=== PATIENT | female | born 1995 | race Caucasian/White ===

== ENCOUNTER 2016-06-10 00:56 | Inpatient (IN) | payer MEDICAID ==
[2016-06-10] MEDS ORDERED: HYDROCODONE 5 MG/ACETAMIN 325 MG TAB PO ONE (01:04)
--- NOTE | 2016-06-10 01:09 | EDPRACDOC ---
<Serg Rojas - Last Filed: 06/10/16 02:03> - General Information Information Source: Patient Mode Of Arrival: Car - History of Present Illness Onset: TODAY HPI: PT STATES SHE IS 7 MONTHS AND TODAY BEGAN HAVING A HEADACHE THAT SHE CAN NOT GET TO STOP. PT STATES SHE HAS HAD TOOTH PAIN FOR THE PAST MONTH, SHE HAS NOT BEEN EVALUATED FOR SAME Location: Reports: Generalized Pain Quality: Reports: Moderate Modifying Factors: worse with: Medication, Exposure to light, Cold therapy, Immobilization, Movement, Rest Prior work up: Denies: NO, O, CT, LP, MRI, Neurologist Relevant History of: Reports: None <Cherry Hwang - Last Filed: 06/11/16 13:32> - General Information Chief Complaint: Headache Stated Complaint: HEAD & TOOTH ACHE Time Seen by Provider: 06/10/16 01:03 Home Medications: Home Medications Vits W-Ca,Fe,FA(<1Mg) [] 1 each PO DAILY 06/10/16 Allergies/Adverse Reactions: Allergies Allergy/AdvReac Type Severity Reaction Status Date / Time amoxicillin Allergy Hives* Verified 06/10/16 02:17 Penicillins Allergy Hives* Verified 06/10/16 02:17 ED Past Medical History - History Reviewed Yes Nurses notes reviewed and agree except as marked <Cherry Hwang - Last Filed: 06/11/16 13:32> EDM Review of Systems - Review of Systems ROS Negative Except as Marked: Yes All systems reviewed and were negative except as marked <Cherry Hwang - Last Filed: 06/11/16 13:32> - Physical Exam Last recorded Vital Signs: Last Vital Signs Temp 98.1 F 06/10/16 01:08 Pulse 76 06/10/16 01:55 Resp 20 06/10/16 01:55 BP 141/95 06/10/16 01:55 Pulse Ox 100 06/10/16 01:55 Oxygen Pulse Oxygen Saturation 98 O2 Device Oxygen Flow Rate Fraction of Inspired Oxygen ( FIO2) <Serg Rojas - Last Filed: 06/10/16 02:03> - Physical Exam Constitutional: Alert Oriented to: Time, Person, Place Last recorded Vital Signs: Oxygen Pulse Oxygen Saturation O2 Device Oxygen Flow Rate Fraction of Inspired Oxygen ( FIO2) - HEENT Head: Normal ( normocephalic) Eye Exam: Normal (PERRL, EOMI, Sclera white) Oropharynx: Normal (Pharynx:Moist without exudate,Gums-no swelling) Tympanic Membrane: Normal Nose: No Symptoms Reported (septum midline) Neck: Normal (FROM, trachea at midline) - Respiratory/Cardiovascular Respiratory: Normal - CTA (BBS clear to auscultation without adventitious sounds ) Cardiovascular: Normal (RRR without murmur, gallop or rub) - GI Auscultation: Normal (NABS) Palpation: Normal (Soft,No rebound or guarding, non distended) Tenderness: Non tender Hutson's Sign: Negative Rectal Exam: Deferred - Musculoskeletal Back: Normal (Non-Tender) Extremities: Normal (Normal tone, Pulses 2+ No cyanosis or edema, FROM), Pedal Edema (1+ PITTING), Pedal Pulse (2+) - Integumentary Skin: Normal, Warm, Dry Lymphatics: Normal (no adenopathy) - Neurologic Memory Impaired: Normal Motor Function: Normal (Normal tone, Pulses 2+ No cyanosis or edema, FROM) Cranial Nerve: Normal (CN II-X11 intact sensation, strength 5/5) Cerebellar: Normal Mood Description: Normal Perception: Normal <Cherry Hwang - Last Filed: 06/11/16 13:32> - Results 06/10/16 01:10 06/10/16 01:10 WBC 10.2 xk/uL (3.8-10.8) 06/10/16 01:10 RBC 4.22 xM/uL (4.20-5.40) 06/10/16 01:10 Hgb 12.1 g/dL (12.0-16.0) 06/10/16 01:10 Hct 35.8 % (36-47) L 06/10/16 01:10 MCV 85 fL (81-99) 06/10/16 01:10 MCH 28.5 pg (27-32) 06/10/16 01:10 MCHC 33.7 g/dl (33-36) 06/10/16 01:10 RDW 12.7 % (11.5-14.5) 06/10/16 01:10 Plt Count 269 xk/uL (130-400) 06/10/16 01:10 MPV 9.0 fL (7.4-10.4) 06/10/16 01:10 Neut % (Auto) 64.1 % (45-76) 06/10/16 01:10 Lymph % (Auto) 27.0 % (17-44) 06/10/16 01:10 [place] % (Auto) 7.4 % (3-10) 06/10/16 01:10 Eos % (Auto) 0.7 % (0-5) 06/10/16 01:10 Baso % (Auto) 0.8 % (0-2) 06/10/16 01:10 Absolute Neuts (auto) 6.53 xk/uL (1.7-8.2) 06/10/16 01:10 Absolute Lymphs (auto) 2.75 xk/uL (0.65-4.75) 06/10/16 01:10 Sodium 135 mEq/L (137-146) L 06/10/16 01:10 Potassium 4.4 mEq/L (3.5-5.1) 06/10/16 01:10 Chloride 104 mEq/L (98-107) 06/10/16 01:10 Carbon Dioxide 24 mMOL/L (22-33) 06/10/16 01:10 Anion Gap 11 mEq/L (8-16) 06/10/16 01:10 BUN 11 MG/DL (7-17) 06/10/16 01:10 Creatinine 0.70 MG/DL (0.52-1.04) 06/10/16 01:10 Estimated GFR (MDRD) > 60 mL/min (>=60) 06/10/16 01:10 Glucose 86 MG/DL (70-99) 06/10/16 01:10 Calculated Osmolality 258 MOs/Kg (270-290) L 06/10/16 01:10 Uric Acid 7.0 MG/DL (2.5-6.2) H 06/10/16 01:10 Calcium 8.6 MG/DL (8.4-10.2) 06/10/16 01:10 Corrected Calcium 9.6 MG/DL (8.4-10.2) 06/10/16 01:10 Total Bilirubin 0.3 MG/DL (0.2-1.3) 06/10/16 01:10 AST 19 IU/L (14-36) 06/10/16 01:10 ALT 20 IU/L (9-52) 06/10/16 01:10 Alkaline Phosphatase 147 IU/L (38-126) H 06/10/16 01:10 Total Protein 6.3 G/DL (6.3-8.2) 06/10/16 01:10 Albumin 3.0 G/DL (3.5-5.0) L 06/10/16 01:10 Lab Results 06/10/16 06/10/16 01:10 01:10 WBC 10.2 RBC 4.22 Hgb 12.1 Hct 35.8 L MCV 85 MCH 28.5 MCHC 33.7 RDW 12.7 Plt Count 269 MPV 9.0 Neut % (Auto) 64.1 Lymph % (Auto) 27.0 [place] % (Auto) 7.4 Eos % (Auto) 0.7 Baso % (Auto) 0.8 Absolute Neuts (auto) 6.53 Absolute Lymphs (auto) 2.75 Sodium 135 L Potassium 4.4 Chloride 104 Carbon Dioxide 24 Anion Gap 11 BUN 11 Creatinine 0.70 Estimated GFR (MDRD) > 60 Glucose 86 Calculated Osmolality 258 L Uric Acid 7.0 H Calcium 8.6 Corrected Calcium 9.6 Total Bilirubin 0.3 AST 19 ALT 20 Alkaline Phosphatase 147 H Total Protein 6.3 Albumin 3.0 L <Serg Rojas - Last Filed: 06/10/16 02:03> - Differential Diagnosis Other - Results 06/11/16 05:52 06/11/16 05:52 <Cherry Hwang - Last Filed: 06/11/16 13:32> - Departure Yes I personally saw and evaluated the patient. Disposition: Admit IP To This Hospital <Serg Rojas - Last Filed: 06/10/16 02:03> - Departure Education/Counseling Given To: Patient Education/Counseling Given Regarding: Diagnosis, Treatment, Prognosis, Follow Up Decision to Admit Time: 01:00 Decision to admit date: 06/10/16 Decision to admit: from ED - Physician Consulted [employer]ED PRACTICE PROVIDER Time Called: 01:00 Provider Called: Bharath Soto Time [employer] Eng[employer]ver Returned Call: 01:00 <Cherry Hwang - Last Filed: 06/11/16 13:32> - Departure Condition: Stable Final Diagnosis: Pre-eclampsia Qualifiers: Trimester: third trimester Qualified Code(s): O14.93 - Unspecified pre- eclampsia, third trimester
[2016-06-10] MEDS ORDERED: hydrALAZINE 20 MG/ML VIAL IV ONE (01:15)
[2016-06-10 01:21] LABS: AUTOMATED BASOPHIL 0.8 % (0-2); AUTOMATED EOSINOPHIL 0.7 % (0-5); AUTOMATED MONOCYTE 7.4 % (3-10); AUTOMATED NEUTROPHIL 64.1 % (45-76)
[2016-06-10 01:32] LABS: BLOOD UREA NITROGEN 11 MG/DL (7-17); CALC CORRECTED 9.6 MG/DL (8.4-10.2); CALCIUM 8.6 MG/DL (8.4-10.2); CALCULATED OSMOLALITY 258 MOs/Kg (270-290); CHLORIDE 104 mEq/L (98-107); GLUCOSE 86 MG/DL (70-99); SODIUM LEVEL 135 mEq/L (137-146); TOTAL PROTEIN 6.3 G/DL (6.3-8.2)
[2016-06-10 01:33] VITALS: BMI 32.9
[2016-06-10 02:49] LABS: LEUKOCYTES/URINE TRACE (NEGATIVE); NITRITE/URINE NEG (NEGATIVE); RBC/URINE 0-2 (0-5); URINE OCCULT BLOOD NEG (NEG/TRACE)
[2016-06-10 02:50] LABS: ALL NEG? YES; MDMA* NEG (NEGATIVE); METHAMPHETAMINES NEG (NEGATIVE); OXYCODONE NEG (NEGATIVE)
[2016-06-10] MEDS ORDERED: Vaccine Screening Complete SCH (03:00)
[2016-06-10] MEDS ORDERED: Magnesium Sulfate 4 gram/50 ml 4 GM/50 ML IVB IV SCH (03:16)
[2016-06-10] MEDS ORDERED: Magnesium Sulfate 4 gram/50 ml 4 GM/50 ML IVB IV ONE (03:17)
[2016-06-10] MEDS ORDERED: MAGNESIUM SULFATE 20 GM/500 ML IVB IV ONE (03:18)
[2016-06-10] MEDS: LR 1,000 ML IV SCH ×2 (03:29→17:53)
[2016-06-10 03:32] LABS: AUTOMATED BASOPHIL 0.5 % (0-2); AUTOMATED EOSINOPHIL 0.6 % (0-5); AUTOMATED LYMPH 24.3 % (17-44); AUTOMATED MONOCYTE 6.2 % (3-10); AUTOMATED NEUTROPHIL 68.4 % (45-76)
[2016-06-10 03:42] LABS: BLOOD UREA NITROGEN 10 MG/DL (7-17); CALC CORRECTED 9.5 MG/DL (8.4-10.2); CALCIUM 8.7 MG/DL (8.4-10.2); CALCULATED OSMOLALITY 256 MOs/Kg (270-290); CHLORIDE 103 mEq/L (98-107); GLUCOSE 82 MG/DL (70-99); SODIUM LEVEL 134 mEq/L (137-146); TOTAL PROTEIN 6.8 G/DL (6.3-8.2)
[2016-06-10] MEDS ORDERED: MAGNESIUM SULFATE 20 GM/500 ML IVB IV SCH (04:00)
[2016-06-10] MEDS ORDERED: ACETAMINOPHEN 325 MG/TAB TABLET PO ONE (04:35)
--- NOTE | 2016-06-10 08:36 | HISTPHYS ---
- HISTORY OF PRESENT ILLNESS Age: 20 Estimated Due Date: 07/11/16 Gestational Age: 35 : 1 Para: 0 Patient Presents to:: Emergency Department Presents for:: Headache Details: Pt presented to the ER overnight with complaints of a headache related to tooth pain. The toothache has been present intermittently over the last month. Her headache has been intermittent and associated with the tooth pain in the last four days. She was seen in the ER and sent to L&D for elevated blood pressure. Current : No Complications - REVIEW OF SYSTEMS Reports/Denies: Reports: Movement (Normal), Headache (None currently), Swelling (LE only), HEENT Complaints (Intermittant sinus drainage over the last four weeks), Other (Tooth pain is currently resolved.). Denies: Vaginal Bleeding, Contractions, Shortness of Breath, Blurred Vision, Chest Pain, RUQ Pain Pain: Reports: None - ALLERGIES Allergies Allergy/AdvReac Type Severity Reaction Status Date / Time amoxicillin Allergy Hives* Verified 06/10/16 02:17 Penicillins Allergy Hives* Verified 06/10/16 02:17 - CURRENT MEDICATIONS Home Medication List Vits W-Ca,Fe,FA(<1Mg) [] 1 each PO DAILY 06/10/16 [History] - PAST MEDICAL HISTORY Reports: No Significant History - PAST SURGICAL HISTORY Reports: None - FAMILY HISTORY Family History: Noncontributory - SOCIAL HISTORY Smoking Status: Never smoker Social History: Denies: Alcohol Use Marital Status: Single (Never ) - GENITOURINARY HISTORY Gynecologic History: Reports: None HX : 1 Para: 0 - PHYSICAL EXAM Vital Signs:: Temperature: 98.0 F (06/10/16 02:19) HR: 88 (06/10/16 06:55) RR: 18 (06/10/16 07:15) BP: 148/83 (06/10/16 06:55) Pulse Ox: 100 (06/10/16 01:55) GENERAL: Alert, Oriented, No Acute Distress CARDOVASCULAR/CHEST: Normal. negative: Tachycardia, Irregular RESPIRATORY: Normal - CTA. negative: Rales, Rhonchi, Wheezes ABDOMEN: Gravid, Non-Distended, Non-Tender, Soft Fundal Height (cm): 35 GENITOURINARY: Normal. negative: Lesions, Mass, Rash, Swelling, Discharge MUSCULOSKELETAL: Normal. negative: Atrophy EXTERMITIES: Moves All Extremeties. negative: Pain/Tenderness REFLEXES: Dull/Diminished +1 CLONUS: negative: Bilateral Dilation (cm): 0 Effacement (%): 0 Station: -5 Heart Rate: 130 Reactive, Moderate Variability. negative: Decelerations Contractions: Absent Membranes: Intact - ASSESSMENT (ACTIVE PROBLEMS) (1) 35 weeks gestation of Acute Z3A.35 - 35 WEEKS GESTATION OF Present on Admission: Yes (2) Pre-eclampsia Acute O14.90 - UNSPECIFIED PRE-ECLAMPSIA, UNSPECIFIED TRIMESTER Present on Admission: Yes Comment/Plan: Mild pre eclampsia. Headaches seem to be associated with the dental pain. - PLAN Continue Present Management (Will continue to observe. Pt told the indications for delivery if severe disease occurs. ), Betamethasone, Monitor Labs, Keep NPO
[2016-06-10 08:45] LABS: MAGNESIUM(MEQ/L) 3.78 mEq/L (1.3-1.9)
[2016-06-10] MEDS ORDERED: Betamethasone 6 mg/mL SUSP for INJ 5 ml MDV IM ONE (09:51)
[2016-06-10] MEDS ORDERED: ACETAMINOPHEN 325 MG/TAB TABLET PO PRN (10:12)
[2016-06-10 15:05] LABS: AUTOMATED BASOPHIL 0.5 % (0-2); AUTOMATED EOSINOPHIL 0.1 % (0-5); AUTOMATED LYMPH 13.7 % (17-44); AUTOMATED MONOCYTE 0.8 % (3-10); AUTOMATED NEUTROPHIL 84.9 % (45-76); MPV 8.9 fL (7.4-10.4)
[2016-06-10 15:29] LABS: BLOOD UREA NITROGEN 11 MG/DL (7-17); CALC CORRECTED 9.5 MG/DL (8.4-10.2); CALCIUM 8.4 MG/DL (8.4-10.2); CALCULATED OSMOLALITY 257 MOs/Kg (270-290); CHLORIDE 103 mEq/L (98-107); GLUCOSE 133 MG/DL (70-99); SODIUM LEVEL 133 mEq/L (137-146); TOTAL PROTEIN 6.2 G/DL (6.3-8.2)
[2016-06-10] MEDS: Betamethasone 6 mg/mL SUSP for INJ 5 ml MDV IM SCH (17:55)
--- NOTE | 2016-06-10 18:02 | OBGYNPROG ---
- Subjective Hospital Day #: 2 Reports: Movement (Normal). Denies: Complaints, Vaginal Bleeding, Contractions, Shortness of Breath, Headache, Blurred Vision, RUQ Pain Pain: Reports: None - Objective Vital Signs: Temperature: 97.9 F (06/10/16 12:08) HR: 81 (06/10/16 17:08) RR: 18 (06/10/16 17:08) BP: 141/85 (06/10/16 17:08) Pulse Ox: 100 (06/10/16 01:55) GENERAL: Alert, Oriented, No Acute Distress CARDOVASCULAR/CHEST: Normal. negative: Tachycardia, Irregular RESPIRATORY: Normal - CTA. negative: Rales, Rhonchi, Wheezes ABDOMEN: Gravid, Non-Distended, Non-Tender, Soft EXTERMITIES: Moves All Extremeties (1+ DTRs. No clonus). negative: Pain/ Tenderness OBGYN Progress Note - ASSESSMENT (1) 35 weeks gestation of Status: Acute Code(s): Z3A.35 - 35 WEEKS GESTATION OF (2) Pre-eclampsia Status: Acute Code(s): O14.90 - UNSPECIFIED PRE-ECLAMPSIA, UNSPECIFIED TRIMESTER Qualifiers: Trimester: third trimester Qualified Code(s): O14.93 - Unspecified pre- eclampsia, third trimester Comment: with signs or symptoms of severe disease. - PLAN Continue Present Management
[2016-06-11 05:37] VITALS: TEMP 97.9
[2016-06-11 06:08] LABS: AUTOMATED BASOPHIL 0.1 % (0-2); AUTOMATED LYMPH 13.6 % (17-44); AUTOMATED NEUTROPHIL 81.3 % (45-76); MPV 9.2 fL (7.4-10.4)
[2016-06-11 06:39] LABS: BLOOD UREA NITROGEN 18 MG/DL (7-17); CALC CORRECTED 10.1 MG/DL (8.4-10.2); CALCIUM 8.8 MG/DL (8.4-10.2); CALCULATED OSMOLALITY 258 MOs/Kg (270-290); CHLORIDE 105 mEq/L (98-107); GLUCOSE 95 MG/DL (70-99); SODIUM LEVEL 133 mEq/L (137-146); TOTAL PROTEIN 5.6 G/DL (6.3-8.2)
[2016-06-11] MEDS: Betamethasone 6 mg/mL SUSP for INJ 5 ml MDV IM SCH (10:02)
[2016-06-11 11:35] VITALS: BP 136/92; PULSE 76
--- NOTE | 2016-06-11 11:39 | OBGYNPROG ---
- Subjective Hospital Day #: 2 Reports: Movement (Normal). Denies: Complaints (Denies tooth or jaw pain) , Vaginal Bleeding, Contractions, Shortness of Breath, Headache, Blurred Vision (or scotomata), RUQ Pain Pain: Reports: None - Objective Vital Signs: Temperature: 97.9 F (06/11/16 05:36) HR: 76 (06/11/16 11:32) RR: 18 (06/11/16 11:32) BP: 136/92 (06/11/16 11:32) Pulse Ox: 100 (06/10/16 01:55) GENERAL: Alert, Oriented, No Acute Distress CARDOVASCULAR/CHEST: Normal. negative: Tachycardia, Irregular RESPIRATORY: Normal - CTA. negative: Rales, Rhonchi, Wheezes ABDOMEN: Non-Distended, Non-Tender, Soft EXTERMITIES: Moves All Extremeties. negative: Pain/Tenderness (DTRs 1+, no clonus) Heart Rate: Reactive, Moderate Variability. negative: Decelerations Contraction Pattern: Absent OBGYN Progress Note - ASSESSMENT (1) 35 weeks gestation of Status: Acute Code(s): Z3A.35 - 35 WEEKS GESTATION OF (2) Pre-eclampsia Status: Acute Code(s): O14.90 - UNSPECIFIED PRE-ECLAMPSIA, UNSPECIFIED TRIMESTER Qualifiers: Trimester: third trimester Qualified Code(s): O14.93 - Unspecified pre- eclampsia, third trimester Comment: without signs of severe disease. - PLAN Discharge (Will discharge home on bedrest. Biweekly visits and delivery at 37 wks unless pt develops signs of severe pre eclampsia. Precautions and restrictions discusse.)
--- NOTE | 2016-06-11 11:45 | PCM.DCS92 ---
- Primary/Secondary Discharge Diagnoses (1) 35 weeks gestation of Acute Z3A.35 - 35 WEEKS GESTATION OF (2) Pre-eclampsia Acute O14.90 - UNSPECIFIED PRE-ECLAMPSIA, UNSPECIFIED TRIMESTER Present on Admission: Yes third trimester O14.93 - Unspecified pre-eclampsia, third trimester - HOSPITAL COURSE /Op Complications: None - DISCHARGE INSTRUCTIONS Discharge Disposition: Home Discharge Condition: Stable Cognitive Discharge Status: Unimpaired Fuctional Discharge Status: Independent Patient Leaving with Prescriptions?: None Referrals: Bharath Soto MD [Staff Physician] - 06/12/16 (KEEP SCHEDULED OFFICE APPOINTMENT) - Diet Diet at Discharge: As Tolerated, Regular - Activity Activity: Bedrest, Bathroom Privileges, Pelvic Rest - Instructions Call Physician for: Severe Abdominal Cramps, Regular Contractions, Decreased Movement, Rupture of Membranes, Vaginal Bleeding Other Reasons to Call Physician: Headache, visual disturbances, upper abd pain or decreased movement - DC Summary Notes Discharge Medications: *See "Discharge Medication List" for a complete list of Home Medications and Discharge Medications.* Obstetric Hospital Course - Admitting Diagnosis Gestational Age: 35 - Infant Data Feeding Plans for Infant: Breast
== END 2016-06-11 12:45 | disposition home or self-care (01) | DRG 781 ==
LOC: ED 00:56 → MASU 01:45
PROVIDERS: ADMIT Obstetrics & Gynecology; ATTEND Obstetrics & Gynecology
DX: O14.93 Unspecified pre-eclampsia, third trimester (principal); O26.893 Other specified pregnancy related conditions, third trimester; Z3A.35 35 weeks gestation of pregnancy; K08.89 Other specified disorders of teeth and supporting structures
CPT/HCPCS: 36415; 80053; 80307; 81001; 81002; 83735; 84550; 85025; 96361; 96365; 96366; 96372; 96374; 99284; J0360; J0702; J3475; J3490

== ENCOUNTER 2016-06-19 17:42 | Inpatient (IN) | payer MEDICAID ==
[~2016-06-19 17:42] MED LIST: DEXAMETHASONE 4 MG/ML VIAL IV ONE; HYDROmorphone 2 MG/ML VIAL IM ONE; LIDOCAINE 2% 10 ML (PRESERVATIVE FREE) VIAL INF ONE; LIDOCAINE 4% 5 ML AMPULE NEB ONE; MIDAZOLAM 2 MG/2 ML VIAL IV ONE; ONDANSETRON HCL 4 MG/2 ML VIAL IV ONE; OXYTOCIN 10 UNITS/ML VIAL IM ONE; PROPOFOL 200 MG/20 ML VIAL IV ONE; SODIUM BICARBONATE IV ONE; SUCCINYLCHOLINE 20 MG/1 ML INJ 10 ML MDV IV ONE
[2016-06-19 18:03] VITALS: BMI 22.9
[2016-06-19] MEDS ORDERED: Aluminum;Magnesium;Simethicone 30 ML UDC PO PRN ×2 (18:06→18:07)
[2016-06-19] MEDS ORDERED: ACETAMINOPHEN 325 MG/TAB TABLET PO PRN (18:06)
[2016-06-19] MEDS ORDERED: LR 500 ML IV PRN (18:07)
[2016-06-19] MEDS ORDERED: ZOLPIDEM TARTRATE 5 MG TAB PO PRN (18:07)
[2016-06-19] MEDS ORDERED: DINOPROSTONE 10 MG VAGINAL INSERT PV ONE (18:07)
[2016-06-19] MEDS ORDERED: SODIUM CHLORIDE 0.9% 3 ML FLUSH FLUSH PRN (18:07)
--- NOTE | 2016-06-19 18:17 | HISTPHYS ---
- HISTORY OF PRESENT ILLNESS Age: 20 Estimated Due Date: 07/11/16 Gestational Age: 36 : 1 Para: 0 Patient Presents to:: Labor & Delivery Presents for:: Induction of Labor (possible), Elevated Blood Pressure Details: Pt seen in the office for routine checkup. BPP was 8/8. She has had mild preeclampsia for the last few weeks and was scheduled for induction with cervidil in one day. Due to elevated BP , pt was sent over for evaluation and possible early induction of labor. Current : Hypertension, GBS -, Late Care - REVIEW OF SYSTEMS Reports/Denies: Reports: Movement. Denies: Vaginal Bleeding, Contractions , Leaking Fluid, Fever, Headache, RUQ Pain Pain: Reports: None - ALLERGIES Allergies Allergy/AdvReac Type Severity Reaction Status Date / Time amoxicillin Allergy Hives* Verified 06/19/16 17:58 Penicillins Allergy Hives* Verified 06/19/16 17:58 - PAST MEDICAL HISTORY Reports: No Significant History - PAST SURGICAL HISTORY Reports: None - SOCIAL HISTORY Smoking Status: Former smoker Social History: Denies: Amphetamine Use, Alcohol Use, Barbiturate Use, Benzodiazipine Use, Cocaine Use, Heroin Use, Marijuana Use, Methadone Use, MDMA (Ecstasy) Use, Substance Use Disorder - GENITOURINARY HISTORY HX : 1 Para: 0 - PHYSICAL EXAM Vital Signs:: Temperature: 98.1 F (06/19/16 17:42) HR: 63 (06/19/16 17:42) RR: 18 (06/19/16 17:42) BP: 137/95 (06/19/16 17:42) Pulse Ox: () GENERAL: Alert, Oriented, No Acute Distress HEENT: Normal CARDOVASCULAR/CHEST: Normal RESPIRATORY: Normal - CTA ABDOMEN: Gravid, Non-Distended, Non-Tender, Soft MUSCULOSKELETAL: Normal EXTERMITIES: Moves All Extremeties JA'S SIGN: negative: Bilateral Heart Rate: 130's reactive Reactive Contractions: Absent Membranes: Intact - ASSESSMENT (ACTIVE PROBLEMS) (1) 36 weeks gestation of Acute Z3A.36 - 36 WEEKS GESTATION OF (2) Pre-eclampsia during in third trimester, antepartum Acute O14.93 - UNSPECIFIED PRE-ECLAMPSIA, THIRD TRIMESTER (3) Elective induction of labor planned Acute [id number] - - PLAN Cervidil, Monitoring, High Dose Pitocin, Induction of Labor, Monitor Labs Other Plan: magnesium sulfate is an option if blood pressure becomes consistently elevated
[2016-06-19] MEDS: LR 1,000 ML IV SCH (18:28)
[2016-06-19 18:35] LABS: AUTOMATED BASOPHIL 0.5 % (0-2); AUTOMATED EOSINOPHIL 0.6 % (0-5); AUTOMATED LYMPH 23.6 % (17-44); AUTOMATED MONOCYTE 6.5 % (3-10); AUTOMATED NEUTROPHIL 68.8 % (45-76)
[2016-06-19 18:56] LABS: LEUKOCYTES/URINE NEG (NEGATIVE); NITRITE/URINE NEG (NEGATIVE); URINE OCCULT BLOOD NEG (NEG/TRACE)
[2016-06-19 18:57] LABS: BLOOD UREA NITROGEN 18 MG/DL (7-17); CALC CORRECTED 10.7 MG/DL (8.4-10.2); CALCIUM 9.1 MG/DL (8.4-10.2); CALCULATED OSMOLALITY 252 MOs/Kg (270-290); CHLORIDE 103 mEq/L (98-107); GLUCOSE 73 MG/DL (70-99); SODIUM LEVEL 130 mEq/L (137-146); TOTAL PROTEIN 5.1 G/DL (6.3-8.2)
[2016-06-19] MEDS ORDERED: SODIUM CHLORIDE 0.9% 3 ML FLUSH FLUSH SCH (19:00)
--- NOTE | 2016-06-19 19:22 | OBGYNPROG ---
- Exam Vital Signs: Last Vital Signs Temp 98.1 F 06/19/16 17:42 Pulse 63 06/19/16 17:42 Resp 18 06/19/16 17:42 BP 137/95 06/19/16 17:42 Pulse Ox Laboratory Results - last 24 hr 06/19/16 06/19/16 06/19/16 18:00 18:15 18:15 WBC 11.4 H RBC 4.26 Hgb 12.0 Hct 36.3 MCV 85 MCH 28.2 MCHC 33.1 RDW 13.1 Plt Count 294 MPV 9.0 Neut % (Auto) 68.8 Lymph % (Auto) 23.6 [place] % (Auto) 6.5 Eos % (Auto) 0.6 Baso % (Auto) 0.5 Absolute Neuts (auto) 7.75 Absolute Lymphs (auto) 2.62 Sodium 130 L Potassium 5.1 Chloride 103 Carbon Dioxide 23 Anion Gap 9 BUN 18 H Creatinine 0.80 Estimated GFR (MDRD) > 60 Glucose 73 Calculated Osmolality 252 L Calcium 9.1 Corrected Calcium 10.7 H Total Bilirubin 0.2 AST 39 H ALT 37 Alkaline Phosphatase 146 H Total Protein 5.1 L Albumin 2.4 L Urine Color Yellow Urine Clarity Cldy Urine pH 6.0 Ur Specific [place] 1.025 Urine Protein 3+ H Urine Glucose (UA) Neg Urine Ketones Neg Urine Occult Blood Neg Urine Nitrite Neg Urine Bilirubin Neg Urine Urobilinogen 0.2 Ur Leukocyte Esterase Neg Urine RBC 2-5 Urine WBC 5-10 H Ur Epithelial Cells 4+ Urine Bacteria 1+ H Urine Mucus Large Monitor Mode: External(US) Heart Rate: 140's Moderate Variability Contraction Pattern: Absent Vaginal Bleeding: None Dilation (cm): 0 Effacement (%): 70 Station: -3 Membranes: Intact cervidil placed without incident - Plan High Dose Pitocin (in the AM), Cervidil if BP persistently elevated may need to add magnesium sulfate
[2016-06-19 20:06] LABS: URIC ACID 7.3 MG/DL (2.5-6.2)
[2016-06-19] MEDS ORDERED: ONDANSETRON HCL 4 MG/2 ML VIAL IV PRN (21:14)
[2016-06-19] MEDS ORDERED: Magnesium Sulfate 4 gram/50 ml 4 GM/50 ML IVB IV ONE (21:14)
[2016-06-19] MEDS ORDERED: CALCIUM GLUCONATE 4.65 MEQ/10 ML VIAL IV SCH (22:00)
[2016-06-19] MEDS: MAGNESIUM SULFATE 20 GM/500 ML IVB IV SCH (22:01)
--- NOTE | 2016-06-19 23:26 | OBGYNPROG ---
Note After several elevated blood pressures, the patient was started on magnesium sulfate with 4 gram loading dose and 2 gram/hour
[2016-06-20] MEDS ORDERED: hydrALAZINE 20 MG/ML VIAL IV ONE (00:13)
[2016-06-20] MEDS ORDERED: hydrALAZINE 20 MG/ML VIAL ONE (00:17)
[2016-06-20] MEDS ORDERED: TERBUTALINE 1 MG/ML AMPULE SQ ONE ×2 (04:10→04:12)
[2016-06-20 04:14] LABS: MAGNESIUM(MEQ/L) 4.19 mEq/L (1.3-1.9)
--- NOTE | 2016-06-20 05:12 | OBGYNPROG ---
Note CTSP regarding recurrent late decels. cervidil already inadverdantly removed by nursing staff.Pt was do q 1-2 minutes even though she was on magnesium sulfate. Pt received 0.25 mg of terbutaline and her contractions spaced out. No further late decelerations noted at this time. Pt is also more comfortable as well. CVX was 2/80/-3 per nursing. Currently contractions are q 1-3 minutes.
[2016-06-20] MEDS ORDERED: SODIUM CHLORIDE 0.9% 3 ML FLUSH FLUSH SCH ×2 (06:00→18:00)
[2016-06-20] MEDS ORDERED: OXYTOCIN 1,000 ML IV SCH (06:30)
[2016-06-20] MEDS ORDERED: BUTORPHANOL 1 MG/ML VIAL IV PRN (06:30)
[2016-06-20] MEDS ORDERED: Fentanyl/Bupivacaine 100 ML EPI ONE (06:56)
[2016-06-20] MEDS ORDERED: METOCLOPRAMIDE 10 MG/2 ML VIAL IV PRN (08:10)
[2016-06-20] MEDS ORDERED: LR 500 ML IV ONE (08:10)
[2016-06-20] MEDS ORDERED: NALOXONE 0.4 MG/ML AMPULE IV PRN (08:10)
[2016-06-20] MEDS ORDERED: EPHEDrine 50 MG/ML VIAL IV PRN (08:10)
[2016-06-20] MEDS ORDERED: LR 500 ML IV PRN (08:10)
[2016-06-20] MEDS ORDERED: DIPHENHYDRAMINE 50 MG/ML VIAL IV PRN (08:10)
[2016-06-20] MEDS ORDERED: ONDANSETRON HCL 4 MG/2 ML VIAL IV PRN ×3 (08:10→14:17)
--- NOTE | 2016-06-20 08:12 | HIM.ANES ---
Anesthesia Evaluation & Plan - Focused Review of Systems Cardiac History: No: Hx Cardiac Disorders HEENT: No: Other HEENT Problems Gastrointestinal: No: Hx Gastrointestinal Disorders Neurological/Musculoskeletal: No: Hx Neurological Disorders Psychological: No Hx Depression, No Hx Mental/Emotional Disorders Smoking Status: Former smoker Past Social History: Denies: Amphetamine Use, Alcohol Use, Barbiturate Use, Benzodiazipine Use, Cocaine Use, Heroin Use, Marijuana Use, Methadone Use, MDMA (Ecstasy) Use, Substance Use Disorder - Focused Physical Exam Mallampati: Class II Thyromental Distance: Greater than 3 Neck: Full Range of Motion Dental: Normal - no significant findings Cardiovascular/Chest: Normal Respiratory: Lungs clear Other: Problem List Problem Status Onset 36 weeks gestation of Acute Elective induction of labor planned Acute Pre-eclampsia during in third trimester, antepartum Acute 35 weeks gestation of Acute Pre-eclampsia Acute CBC/BMP/Other 06/19/16 18:15 06/19/16 18:15 Allergies Allergy/AdvReac Type Severity Reaction Status Date / Time amoxicillin Allergy Hives* Verified 06/19/16 17:58 Penicillins Allergy Hives* Verified 06/19/16 17:58 Home Medications Medication Instructions Recorded Last Taken Type Vits W-Ca,Fe,FA(<1Mg) 1 each PO DAILY 06/10/16 06/19/16 12:00 History [] Height and Weight Patient's height 5 ft 5.5 in Patient's weight 88.451 kg BMI 22.9 Vital Signs Temperature 98.3 F 06/20/16 05:48 Pulse Rate 94 06/20/16 07:38 Respiratory Rate 18 06/20/16 07:38 Blood Pressure 129/72 06/20/16 07:38 Pulse Oxygen Saturation - Anesthetic Plan Anesthesia Type: Epidural ASA Class: 2 -: I have examined this patient and reviewed the medical record. The patient has been assessed prior to anesthesia. Risks and benefits of anesthesia and anesthetic technique options have been discussed and all questions answered. The patient accepts the risk and desires me to proceed with the planned anesthetic.
--- NOTE | 2016-06-20 08:15 | HIM.ANESP ---
Procedure Note DATE OF PROCEDURE: 06/20/16 PREOPERATIVE DIAGNOSIS: Labor Pain Control. POSTOPERATIVE DIAGNOSIS: Same PROCEDURE: Epidural PERFORMING PROVIDER: Abel No MD DIAGNOSIS: Labor SURGEON: [Jude] TIME OUT: [706] Anesthesia START time: [707] Anesthesia STOP (Delivery) Time : MEDICATIONS: INF Bupivacaine 0.125% + Fentanyl 3mcg/ml ml/hr NEEDLE: Tuohy 17G STERILE BARRIERS: sterile x 3, mask, sterile gloves. APPROACH: [Midline] ATTEMPTS:[1] COMPLICATIONS: None. BLOOD LOSS: 0 cubic centimeters. PROCEDURE FINDINGS AND TECHNIQUE: At the request of the patient and benefits clerk , an Epidural Block was performed for labor pain relief. Epidural Risk, benefits and alternatives of the procedure were explained and questions answered. Informed consent was obtained, confirmed with patient and on chart. Time out was performed. Contraction, Pulse oximetry, EKG and BP monitoring were established. The patient is a [sitting] position and lumbar area was prepped and draped in a sterile manner. Skin anesthesia was obtained with 1% Xylocaine infiltration. The [Epidural] was done in the usual manner. A Tuohy needle was inserted with loss of resistance to [NS] @ [7]cm. Local anesthetic was injected in incremental volumes with negative aspirations throughout, Bolus dose: Lidocaine [2] % [8] cc. There was no pain on injection. Epidural catheter threaded [5] cm into epidural space. Test dose Lidocaine 1.5 % with epinephrine 1:200,000, 3 ml via epidural catheter. Negative test dose. SaO2 [98]% EKG SR Loading Dose 0 mcg/ml Fentanyl Infusing Dose Bupivacaine 0.125% + Fentanyl 3mcg/ml ml/hr See Watch Child Record (chart) Patient tolerated the procedure well without complications.
--- NOTE | 2016-06-20 08:30 | OBGYNPROG ---
- Exam Vital Signs: Temperature: 98.3 F (06/20/16 05:48) HR: 94 (06/20/16 07:38) RR: 18 (06/20/16 07:38) BP: 129/72 (06/20/16 07:38) Pulse Ox: () Laboratory Results - last 24 hr 06/19/16 06/19/16 06/19/16 18:00 18:15 18:15 WBC RBC Hgb Hct MCV MCH MCHC RDW Plt Count MPV Neut % (Auto) Lymph % (Auto) [place] % (Auto) Eos % (Auto) Baso % (Auto) Absolute Neuts (auto) Absolute Lymphs (auto) Sodium 130 L Potassium 5.1 Chloride 103 Carbon Dioxide 23 Anion Gap 9 BUN 18 H Creatinine 0.80 Estimated GFR (MDRD) > 60 Glucose 73 Calculated Osmolality 252 L Uric Acid 7.3 H Calcium 9.1 Corrected Calcium 10.7 H Magnesium Magnesium Conc Total Bilirubin 0.2 AST 39 H ALT 37 Alkaline Phosphatase 146 H Total Protein 5.1 L Albumin 2.4 L Urine Color Yellow Urine Clarity Cldy Urine pH 6.0 Ur Specific [place] 1.025 Urine Protein 3+ H Urine Glucose (UA) Neg Urine Ketones Neg Urine Occult Blood Neg Urine Nitrite Neg Urine Bilirubin Neg Urine Urobilinogen 0.2 Ur Leukocyte Esterase Neg Urine RBC 2-5 Urine WBC 5-10 H Ur Epithelial Cells 4+ Urine Bacteria 1+ H Urine Mucus Large Blood Type B POSITIVE Antibody Screen Negative 06/19/16 06/20/16 18:15 03:45 WBC 11.4 H RBC 4.26 Hgb 12.0 Hct 36.3 MCV 85 MCH 28.2 MCHC 33.1 RDW 13.1 Plt Count 294 MPV 9.0 Neut % (Auto) 68.8 Lymph % (Auto) 23.6 [place] % (Auto) 6.5 Eos % (Auto) 0.6 Baso % (Auto) 0.5 Absolute Neuts (auto) 7.75 Absolute Lymphs (auto) 2.62 Sodium Potassium Chloride Carbon Dioxide Anion Gap BUN Creatinine Estimated GFR (MDRD) Glucose Calculated Osmolality Uric Acid Calcium Corrected Calcium Magnesium 5.10 H Magnesium Conc 4.19 H Total Bilirubin AST ALT Alkaline Phosphatase Total Protein Albumin Urine Color Urine Clarity Urine pH Ur Specific [place] Urine Protein Urine Glucose (UA) Urine Ketones Urine Occult Blood Urine Nitrite Urine Bilirubin Urine Urobilinogen Ur Leukocyte Esterase Urine RBC Urine WBC Ur Epithelial Cells Urine Bacteria Urine Mucus Blood Type Antibody Screen Heart Rate: 139 Minimal Variability Contraction Pattern: Irregular Dilation (cm): 4 Effacement (%): 100 Station: -3 Membranes: AROM Amniotic Fluid: Clear - Plan Continue Present Management arom performed, patient with good pain control from epidural. Small accel with scalp stimulation. Will place on side, oxygen placed. Will follow closely, continue magnesium per protocol.
[2016-06-20] MEDS: MAGNESIUM SULFATE 20 GM/500 ML IVB IV SCH (08:34)
[2016-06-20] MEDS ORDERED: Fentanyl/Bupivacaine 100 ML EPI SCH (09:00)
[2016-06-20] MEDS ORDERED: LIDOCAINE 1% 30 ML VIAL (PRESERVATIVE FREE) ONE (09:27)
--- NOTE | 2016-06-20 09:40 | OBGYNPROG ---
- Exam Vital Signs: Temperature: 98.3 F (06/20/16 05:48) HR: 94 (06/20/16 07:38) RR: 18 (06/20/16 07:38) BP: 129/72 (06/20/16 07:38) Pulse Ox: () Heart Rate: 133 Moderate Variability Contraction Pattern: Irregular - Plan FHR now now more reassuring, will augment labor with pitocin secondary to inadequate contractions and no cervical change. Will follow closely, no current indication for emergent delivery. Continue Magnesium, bp good at this point.
[2016-06-20 09:45] LABS: MAGNESIUM(MEQ/L) 4.85 mEq/L (1.3-1.9)
[2016-06-20] MEDS ORDERED: LIDOCAINE 2% 10 ML (PRESERVATIVE FREE) VIAL INF ONE (10:00)
--- NOTE | 2016-06-20 11:12 | OBGYNPROG ---
- Exam Heart Rate: 125 Moderate Variability Contraction Pattern: Regular Dilation (cm): 5 Effacement (%): 100 Station: -3 Amniotic Fluid: Clear - Plan Continue Present Management (will continue current management, pitocin, magnesium, small accels with scalp stimulation.)
[2016-06-20] MEDS: LR 1,000 ML IV SCH (11:22)
--- NOTE | 2016-06-20 12:39 | OBGYNPROG ---
- Exam Vital Signs: Temperature: 97.8 F (06/20/16 10:27) HR: 64 (06/20/16 12:00) RR: 16 (06/20/16 12:00) BP: 119/64 (06/20/16 12:00) Pulse Ox: () Heart Rate: 125 Minimal Variability Contraction Pattern: Regular Dilation (cm): 4.5 Effacement (%): 100 Station: -3 Amniotic Fluid: Clear - Plan Discussed with patient decrease in btbv now with no cervical change x 4 hours. Bp stable on magnesium, recommend proceed with primary LTCS for failure to progress. Will notify anesthesia and peds.
[2016-06-20] MEDS ORDERED: CEFAZOLIN 1 GM VIAL IV ONE (13:00)
[2016-06-20] MEDS ORDERED: HYDROmorphone 1 MG INJECTION IV PRN ×2 (13:51)
[2016-06-20] MEDS ORDERED: ONDANSETRON HCL 4 MG ODT TAB PO PRN (13:51)
[2016-06-20] MEDS ORDERED: FENTANYL 100 MCG/2 ML VIAL IV PRN ×2 (13:51)
[2016-06-20] MEDS ORDERED: hydrALAZINE 20 MG/ML VIAL IV PRN (13:51)
[2016-06-20] MEDS ORDERED: LABETALOL 20 MG/4 ML SYRINGE IV PRN (13:51)
[2016-06-20] MEDS ORDERED: MEPERIDINE 25 MG/ML TUBEX IV PRN (13:51)
[2016-06-20] MEDS ORDERED: HYDROmorphone 50 ML IV ONE (14:14)
[2016-06-20] MEDS ORDERED: ZOLPIDEM TARTRATE 5 MG TAB PO PRN (14:17)
[2016-06-20] MEDS ORDERED: OXYTOCIN 1,000 ML IV ONE (14:17)
[2016-06-20] MEDS ORDERED: SODIUM CHLORIDE 0.9% 3 ML FLUSH FLUSH PRN (14:17)
[2016-06-20] MEDS ORDERED: HYDROmorphone 50 ML IV PRN (14:17)
[2016-06-20] MEDS ORDERED: LANOLIN OINTMENT 0.25 OZ TUBE TOP PRN (14:17)
[2016-06-20] MEDS ORDERED: OXYCODONE HCL 5 MG TABLET PO PRN ×2 (14:17)
--- NOTE | 2016-06-20 14:20 | OBDELNOTE ---
Delivery Note - Problem/Diagnosis (1) Failure to progress in labor Status: Acute (2) 36 weeks gestation of Status: Acute (3) Pre-eclampsia during in third trimester, antepartum Status: Acute - Admitting Diagnosis Reason for Visit: Elevated Blood Pressure Admission Date: 06/19/16 Admission time: 18:00 Gestational Age: 36 - Procedures Procedure(s): Non-Stress Test Labor Anesthesia/Analgesia: Epidural, General Anesthesia Date: 06/20/16 Delivery Presentation: Vertex Episiotomy: None Laceration: None Reason: Failure to Progress Skin Incision: Pfannenstiel Uterine Incision: Low Transverse EBL: 500 Fluid: Clear Placenta: Manual Removal Description: Normal Cord: 3 Vessels - Infant Data Sex: Female Weight: 2.183 kg (1min): 7 (5min): 8 Feeding Plans for : Breast Complications: No Complications [facility] to:: LDRP/Mother's Room - /Operative Complications /Op Complications: None Discharge Planning - REASON FOR ADMISSION Patient Presents to:: Labor & Delivery Reason for Visit: Induction of Labor (possible), Elevated Blood Pressure - DISCHARGE INSTRUCTIONS
--- NOTE | 2016-06-20 14:24 | HIMOPRPT ---
DATE OF PROCEDURE: DATE OF PROCEDURE: 06/20/16 PREOPERATIVE DIAGNOSIS: 1. Intrauterine at [37 weeks]. 2. Severe Gestational hypertension 3. Failure to progress POSTOPERATIVE DIAGNOSIS: 1. Intrauterine at [37 weeks]. 2. Severe Gestational hypertension 3. Failure to progress PROCEDURE: Primary low transverse via Pfannenstiel incision. SURGEON: Clara Ray MD. ANESTHESIA: [Epidural, General] FINDINGS: Vigorous [female] , [4] pounds [13] ounces with Apgars of [7] and [8]. COMPLICATIONS: None. ESTIMATED BLOOD LOSS: 500 mL. URINE OUTPUT: [200] mL of clear urine. PROCEDURE IN DETAIL: The patient was taken to the operating room where anesthesia was not adequate at the time of skin check. After waiting 20 minutes to allow more time, and still not adequate pain control, General anesthesia was induced and a Pfannenstiel incision was made with scalpel carried down to the fascia. The fascia was nicked in midline and the incision extended laterally with Martinez scissors. The fascia was elevated up, dissected off rectus muscles. Rectus muscles were midline. Peritoneum was identified and entered. Peritoneal incision was extended superiorly and inferiorly with good visualization of bladder. Bladder flap was created with blunt and sharp dissection. The lower uterine segment was incised in transverse fashion with scalpel and extended bluntly. The 's head was delivered atraumatically. The nose and mouth were suctioned with bulb suction. Cord clamped and cut and infant handed off to awaiting asbestos microscopist. Placenta was removed. The uterus was exteriorized and cleared of all clots. The uterine incision was closed with #1 chromic and second chromic was used for hemostasis. The uterus was returned to the abdomen and hemostasis was verified. Clots were removed from the gutters. The fascia was closed with 0 PDS. Subcuticular fat was irrigated with saline. Skin was closed with 4-0 monocryl in subcuticular fashion. Dermabond was applied to the skin site. Sponge, laps, and needle counts correct x2. The patient tolerated well. ANESTHESIA: Epidural General Anesthesia
--- NOTE | 2016-06-20 14:27 | PCM.DCS92 ---
<Clara Ray - Last Filed: 06/20/16 14:24> - Primary/Secondary Discharge Diagnoses (1) Failure to progress in labor Acute O62.2 - OTHER UTERINE INERTIA (2) 36 weeks gestation of Acute Z3A.36 - 36 WEEKS GESTATION OF (3) Pre-eclampsia during in third trimester, antepartum Acute O14.93 - UNSPECIFIED PRE-ECLAMPSIA, THIRD TRIMESTER (4) Single live Acute Z37.0 - SINGLE LIVE (5) delivery delivered Acute O82 - ENCOUNTER FOR DELIVERY WITHOUT INDICATION - HOSPITAL COURSE /Op Complications: None - DISCHARGE INSTRUCTIONS Discharge Disposition: Home Discharge Condition: Good Cognitive Discharge Status: Unimpaired Fuctional Discharge Status: Independent Patient Leaving with Prescriptions?: Yes Home Medications/ New Prescriptions: New Ibuprofen Tablet [Motrin] 800 mg PO TID #30 tab Oxycodone Immediate Release [Oxycodone Immediate Release (OxyIR)] 5 mg PO Q4H PRN #30 tab PRN Reason: Pain Nifedipine [Procardia Xl] 30 mg PO DAILY #30 tab.er.24 Continue Vits W-Ca,Fe,FA(<1Mg) [] 1 each PO DAILY Referrals: Clara Ray MD [Staff Physician] - 07/05/16 11:15 am - Diet Diet at Discharge: Regular - Activity Activity: No Heavy Lifting, Pelvic Rest, No Driving No Driving for: 2 weeks - Instructions Call Physician for: Sudden/Sever Chest Pain, Foul Smelling Discharge, Pain/ Redness in Calf/Leg, Temperature Above 100.4, Drainiage from Wound Additional Instructions: Problem: Pain/Alteration in Comfort Goal: Pain relieved or effectively managed Instructions: Follow Discharge Instructions. Call your physician if condition worsens. Patient needs blood pressure check in office on Sunday - Summary Notes Discharge Medications: *See "Discharge Medication List" for a complete list of Home Medications and Discharge Medications.* Obstetric Hospital Course - Admitting Diagnosis Reason for Visit: Elevated Blood Pressure Admission Date: 06/19/16 Admission time: 18:00 Gestational Age: 36 - Procedures Procedure(s): Non-Stress Test Labor Anesthesia/Analgesia: Epidural, General Anesthesia Date: 06/20/16 Delivery Presentation: Vertex Episiotomy: None Laceration: None Skin Incision: Pfannenstiel Uterine Incision: Low Transverse EBL: 500 Fluid: Clear Placenta: Manual Removal Description: Normal Cord: 3 Vessels - Infant Data Sex: Female Weight: 2.183 kg (1min): 7 (5min): 8 Feeding Plans for : Breast [place] Complications: No Complications to:: LDRP/Mother's Room - /Operative Complications /Op Complications: None <Eloise Whatley - Last Filed: 06/22/16 16:15> - Primary/Secondary Discharge Diagnoses (1) care following delivery Acute Z39.2 - ENCOUNTER FOR ROUTINE FOLLOW-UP (2) Pre-eclampsia Acute O14.90 - UNSPECIFIED PRE-ECLAMPSIA, UNSPECIFIED TRIMESTER third trimester O14.93 - Unspecified pre-eclampsia, third trimester - DC Summary Notes Discharge Medications: *See "Discharge Medication List" for a complete list of Home Medications and Discharge Medications.*
[2016-06-20] MEDS ORDERED: Pharmacy Order Set Alert SCH (15:00)
--- NOTE | 2016-06-20 15:11 | SC.ANESPOS ---
Post-Anesthesia Note LOC: Fully Awake Post-Anesthesia Assessment: Awake, Returned to Baseline, Hemodynamically Stable , Pain Control Adequate Phase I & II Recovery Complete: Yes Apparent Anesthesia Complication: No : N PACU Discharge Time: 14:50 - Vital Signs Blood Pressure: 153/99 Pulse: 69 Resp Rate: 16 O2 Sat: 94 Temp: 98.2 F - Comments Anesthesia Discharge Time Report Time 14:50
[2016-06-20] MEDS: IBUPROFEN 800 MG TAB PO SCH ×2 (16:36→21:12)
[2016-06-20] MEDS ORDERED: MAGNESIUM SULFATE 20 GM/500 ML IVB IV SCH (16:39)
[2016-06-20] MEDS ORDERED: LR 1,000 ML IV SCH (21:16)
[2016-06-21 00:02] LABS: MAGNESIUM(MEQ/L) 4.02 mEq/L (1.3-1.9)
[2016-06-21] MEDS: IBUPROFEN 800 MG TAB PO SCH ×3 (04:00→17:29)
[2016-06-21] MEDS: LR 1,000 ML IV SCH (07:58)
[2016-06-21 08:07] LABS: AUTOMATED BASOPHIL 0.4 % (0-2); AUTOMATED LYMPH 15.3 % (17-44); AUTOMATED MONOCYTE 5.1 % (3-10); AUTOMATED NEUTROPHIL 79.2 % (45-76)
[2016-06-21 08:27] LABS: BLOOD UREA NITROGEN 14 MG/DL (7-17); CALC CORRECTED 9.1 MG/DL (8.4-10.2); CALCIUM 7.1 MG/DL (8.4-10.2); CALCULATED OSMOLALITY 255 MOs/Kg (270-290); CHLORIDE 102 mEq/L (98-107); GLUCOSE 79 MG/DL (70-99); SODIUM LEVEL 132 mEq/L (137-146); TOTAL PROTEIN 4.6 G/DL (6.3-8.2)
--- NOTE | 2016-06-21 08:31 | OBGYNPROG ---
- Subjective Post Op Day: 1 Reports: Moderate Lochia. Denies: Complaints, Headache, Nausea, Vomitting, Shortness of Breath Pain: Reports: Well Managed - Objective Vital Signs: Temperature: 98 F (06/21/16 06:41) HR: 62 (06/21/16 08:00) RR: 16 (06/21/16 08:00) BP: 153/92 (06/21/16 08:00) Pulse Ox: 93 (06/20/16 15:43) General: Alert, Oriented, No Acute Distress Cardiovascular/Chest: Normal. negative: Tachycardia, Irregular Respiratory: Normal - CTA. negative: Rales, Rhonchi, Wheezes ABDOMEN: Bowel Sounds Present, Non-Distended, Soft, Tender (Appropriately) Abdominal Incision: Incision Clean/Dry/Intact Fundus: At Umbilicus, Firm Lochia: Moderate EXTERMITIES: Moves All Extremeties. Denies: Pain/Tenderness REFLEXES: Dull/Diminished +1 OBGYN Progress Note - ASSESSMENT (1) delivery delivered Status: Acute Code(s): O82 - ENCOUNTER FOR DELIVERY WITHOUT INDICATION (2) Pre-eclampsia during in third trimester, antepartum Status: Acute Code(s): O14.93 - UNSPECIFIED PRE-ECLAMPSIA, THIRD TRIMESTER Comment: BP stable, good UOP. - PLAN Continue Present Management (D/C mag this afternoon), Repeat Labs
[2016-06-22] MEDS: IBUPROFEN 800 MG TAB PO SCH ×3 (00:01→12:20)
[2016-06-22 06:16] VITALS: TEMP 98.3
--- NOTE | 2016-06-22 09:42 | OBGYNPROG ---
- Subjective Post Day: 2 Post Op Day: 2 Reports: Ambulating, Out of Bed, Tolerating Regular Diet, Voiding Freely, Passing Flatus, Moderate Lochia, Well, Fatigue. Denies: Complaints, Nausea, Vomitting, Chest Pain, Shortness of Breath Pain: Reports: Well Managed, Incision - Objective Vital Signs: Vital Signs - 24 hr 06/21/16 06/21/16 06/21/16 10:00 10:01 12:00 Temperature 97.8 F Pulse Rate 61 61 68 Respiratory 16 18 16 Rate Blood Pressure 143/80 143/80 142/8 L 06/21/16 06/21/16 06/21/16 12:01 14:00 14:02 Temperature Pulse Rate 68 70 70 Respiratory 18 18 18 Rate Blood Pressure 142/85 156/97 156/97 06/21/16 06/21/16 06/21/16 16:00 18:10 18:32 Temperature 98.4 F Pulse Rate 65 72 73 Respiratory 16 18 18 Rate Blood Pressure 143/95 156/100 146/93 06/21/16 06/22/16 22:30 06:14 Temperature 98.4 F 98.3 F Pulse Rate 74 81 Respiratory 18 20 Rate Blood Pressure 143/93 153/99 General: Alert, Oriented, No Acute Distress ABDOMEN: Non-Distended, Soft, Tender (mild expected) Abdominal Incision: Dermabond Intact. negative: Redness, Drainage, Ecchymotic Fundus: At Umbilicus, Firm Bladder: Voiding & Emptying OBGYN Progress Note - ASSESSMENT (1) care following delivery Status: Acute Code(s): Z39.2 - ENCOUNTER FOR ROUTINE FOLLOW-UP (2) Pre-eclampsia Status: Acute Code(s): O14.90 - UNSPECIFIED PRE-ECLAMPSIA, UNSPECIFIED TRIMESTER Qualifiers: Trimester: third trimester Qualified Code(s): O14.93 - Unspecified pre- eclampsia, third trimester Comment: s/p magnesium sulfate - PLAN Routine Care due to persistently elevated blood pressures after discontinuation of magnesium will start low dose anti hypertensive, if blood pressures normalize possible discharge home later today
[2016-06-22 14:30] VITALS: BP 146/85; PULSE 105
--- NOTE | 2016-06-22 16:14 | OBGYNPROG ---
Note Patient 's blood pressure initially improved after administration of medication. Next reading was borderline. The patient continues to be asymptomatic and stable to go home. All precautions reviewed with patient and she will have a blood pressure check in the office on Sunday. She has been instructed to take her blood pressure medicine every day and she is agreeable to plan.
== END 2016-06-22 17:20 | disposition home or self-care (01) | DRG 766 ==
LOC: LD 17:42 → MASU 18:09
PROVIDERS: ADMIT Obstetrics & Gynecology; ATTEND Obstetrics & Gynecology
PROC: 3E0P7GC Introduction of Other Therapeutic Substance into Female Reproductive, Via Natural or Artificial Opening (ICD-10-PCS; 2016-06-20)
PROC: 3E033VJ Introduction of Other Hormone into Peripheral Vein, Percutaneous Approach (ICD-10-PCS; 2016-06-20)
PROC: 10907ZC Drainage of Amniotic Fluid, Therapeutic from Products of Conception, Via Natural or Artificial Opening (ICD-10-PCS; 2016-06-20)
PROC: 10D00Z1 Extraction of Products of Conception, Low, Open Approach (ICD-10-PCS; principal; 2016-06-20 13:00)
DX: O14.94 Unspecified pre-eclampsia, complicating childbirth (principal); O76 Abnormality in fetal heart rate and rhythm complicating labor and delivery; Z3A.37 37 weeks gestation of pregnancy; Z37.0 Single live birth; O62.2 Other uterine inertia; O13.4 Gestational [pregnancy-induced] hypertension without significant proteinuria, complicating childbirth
CPT/HCPCS: 62318; 80053; 81001; 81002; 83735; 84550; 85014; 85018; 85025; 86592; 86850; 86900; 86901; 96360; 96361; 96365; 96366; 96372; 96375; J0330; J0360; J0690; J1100; J1170; J2001; J2250; J2405; J2590; J3105; J3475; J3490